=== PATIENT | male | born 1985 | race Two or more races ===

== ENCOUNTER 2023-08-25 03:48 | Emergency (ER) | payer OTHER ==
[~2023-08-25] VITALS: Ht 177.8 cm; Wt 85.7 kg
[2023-08-25 05:58] LABS: HEMOGLOBIN 15.1 g/dL (13-16.00); MEAN CORPUSCULAR HGB CONC 34.4 g/dl (32.0-36.0); PLATELET COUNT 227 K/uL (150-450); RED BLOOD COUNT 4.89 M/uL (4.00-6.00); RED CELL DISTRIBUTION WIDTH 12.5 % (11.5-14.5)
[2023-08-25 06:29] LABS: URINE APPEARANCE Clear; URINE BILIRRUBIN Negative (NEGATIVE); URINE BLOOD Negative; URINE COLOR Yellow; URINE GLUCOSE Negative (NEGATIVE); URINE LEUKOCYTE Negative; URINE NITRATE Negative; URINE PROTEIN Negative (NEGATIVE); URINE UROBILINOGEN 0.2 E.U./dl
[2023-08-25 06:31] LABS: URINE RBC 2.1 uL (0.0-20.8)
[2023-08-25 06:37] LABS: URINE BACTERIA 3.7 uL (0.0-1933); URINE WBC 0.7 uL (0.0-23.2)
[2023-08-25 06:46] LABS: CALCIUM 9.1 mg/dL (8.5-10.1); CREATININE SERUM 1.07 mg/dL (0.70-1.30); GFR 76.94; POTASSIUM 3.67 mEq/L (3.5-5.1)
[2023-08-25] MEDS ORDERED: DICLOFENAC POTA50 MG PO (07:13)
[2023-08-25] MEDS ORDERED: NORFLEX100MG PO (07:13)
== END 2023-08-25 07:36 | disposition home or self-care (01) ==
LOC: ER 03:48
PROVIDERS: General Practice
DX: M54.89 Other dorsalgia (principal); R07.89 Other chest pain

== ENCOUNTER 2024-06-18 16:11 | Emergency (ER) | payer OTHER ==
[~2024-06-18] VITALS: Ht 180.3 cm; Wt 85.3 kg
[~2024-06-18 16:11] MED LIST: DICLOFENAC POTA50 MG PO; NORFLEX100MG PO
[2024-06-18 16:41] VITALS: BP 124/75; O2SAT 98
[2024-06-18] MEDS ORDERED: FAMOTIDINE/PF 20 MG/2 ML VIAL IV PUSH STA (18:53)
[2024-06-18] MEDS ORDERED: KETOROLAC TROMETHAMINE 30 MG VIAL IM STA (18:53)
[2024-06-18] MEDS ORDERED: PEPCID AC20 MG PO (20:49)
[2024-06-18] MEDS ORDERED: ZANAFLEX4 M1 PO (20:49)
[2024-06-18] MEDS ORDERED: DICLOFENAC POTA50 MG PO (20:49)
== END 2024-06-18 21:01 | disposition home or self-care (01) ==
LOC: ER 16:13
DX: M94.0 Chondrocostal junction syndrome [Tietze] (principal); R00.2 Palpitations

== ENCOUNTER 2024-06-22 05:28 | Emergency (ER) | payer OTHER ==
[~2024-06-22] VITALS: Ht 180.3 cm; Wt 85.3 kg
[~2024-06-22 05:28] MED LIST changes: +PEPCID AC20 MG PO; +ZANAFLEX4 M1 PO
[2024-06-22] MEDS ORDERED: KETOROLAC TROMETHAMINE 30 MG VIAL IV STA (07:31)
[2024-06-22] MEDS ORDERED: hydrOXYzine PAMOATE 50 MG CAPSULE PO STA (07:32)
[2024-06-22] MEDS ORDERED: DEXAMETHASONE SODIUM PHOSPHATE 4 MG/ML VIAL IV STA (07:32)
[2024-06-22] MEDS ORDERED: VISTARIL25 MG PO (10:10)
== END 2024-06-22 10:17 | disposition home or self-care (01) ==
LOC: ER 05:30
DX: M94.0 Chondrocostal junction syndrome [Tietze] (principal); F41.9 Anxiety disorder, unspecified

== ENCOUNTER → 2025-07-12 | Emergency (ER) | payer OTHER ==
[~2025-07-12] VITALS: Ht 177.8 cm; Wt 74.8 kg
[~2025-07-12] MED LIST changes: +AMOX-CLAV 875-1 EACH PO; +CEFTRIAXONE SODIUM 1,000 MG VIAL IM STA; +INTESTINEX680 M1 PO; +KETOROLAC TROMETHAMINE 30 MG VIAL IM STA; +VISTARIL25 MG PO
== END | disposition home or self-care (01) ==
LOC: ER 04:45
DX: M79.641 Pain in right hand (principal)